=== PATIENT | female | born 1980 | race Caucasian/White ===

== ENCOUNTER → 2019-11-05 | Outpatient (CLI) | payer BC ==
[~2019-11-05] MED LIST: ACHD5005 PO; DOCU100C37 PO; FERR-84 PO; IBUP-1773 PO; PREN1TAB71 PO
--- NOTE | 2019-11-05 11:51 | Diagnostic Imaging Report ---
PROCEDURE: US Thyroid. TECHNIQUE: Multiple real-time grayscale images were obtained of the thyroid in various projections. INDICATION: Thyromegaly. FINDINGS: The previous thyroid ultrasound exam of 11/29/2015 noted that the thyroid gland was not enlarged. The right lobe measured 4.9 x 1.2 x 1.4 cm while the left lobe is estimated be 4.5 x 1.1 x 1.4 cm (normal gland size 4-5 x 2 x 2 cm or less). There is no discrete solid or cystic nodule within either lobe of the thyroid either. On this study, the thyroid gland does not appear to have changed significantly in size. The right lobe measures 5.1 x 0.9 x 1.6 cm while the left love was estimated to be 5.0 x 0.9 x 1.6 cm. Each lobe remains fairly homogeneous. There is still no discrete solid or cystic mass evident. There is blood flow in each lobe of the thyroid with blood flow does not seem significantly changed when compared to the prior exam. IMPRESSION: 1. The thyroid gland is not enlarged and there is still no discrete solid or cystic mass within either lobe. 2. If clinical concern regarding an underlying abnormality of the thyroid gland persists and further imaging is desired, then a nuclear medicine thyroid scan would be recommended. Dictated by: Dictated on workstation # [id number]
== END ==
LOC: RAD 10:45
PROVIDERS: ATTEND Nurse Practitioner Family
DX: E01.0 Iodine-deficiency related diffuse (endemic) goiter (principal)
CPT/HCPCS: 76536